=== PATIENT | female | born 1950 | race Caucasian/White ===

== ENCOUNTER → 2016-12-13 | Outpatient (CLI) | payer OTHER ==
[~2016-12-13] MED LIST: CLARITIN10 M3; COLACE PO; COMBIVENT U/D3 ML INH; ECOTRIN81 M1 PO; FLEXERIL10 MG PO; FOLIC ACID1 MG PO; GLUCOPHAGE XR500 MG PO; HYDROCODON-ACE1 EAC3 PO; METFORMIN HCL500 M2; OMEPRAZOLE20 M2 PO; PRILOSEC; SYMBICORT INH; TEMAZEPAM30 MG PO; UNKNOWN ANTIBIOTIC; VICODIN ES 7.51 EAC1; ZOFRAN ODT4 MG; ZOLOFT PO
--- NOTE | ~2016-12-13 | MY11 ---
[facility] A Service of [facility] RADIOLOGY TEXT RESULTS PATIENT: GRACIE DICKENS LOCATION: [facility] : 48 UNIT #: [id number] AGE: [address]: Lucina Coy APRN SEX: F ORDER DR: [id number] [address] [address] [id number] O MR#: [id number] Acc #: [id number] NAME: GRACIE DICKENS : 1950 SEX: F STUDY DATE/TIME: 12/13/2016 12:57 UNIT: [facility] ROOM: STUDY DESCRIPTION: MY Mammogram Screening Dig Juan Attending Physician: Lucina Coy A.P.R.N. Referring Physician: Lucina Coy A.P.R.N. Ordering Physician: Lucina Coy A.P.R.N. Primary Care Physician: Finesse Nava D.O. MEDICAL IMAGING REPORT This report is preliminary unless electronic signature is present. EXAM Bilateral digital screening mammogram with CAD COMPARISON None available. Patient reports prior mammograms performed at [facility], [place] but there is no record of such at this institution. This will therefore serve as the patient's effective baseline screening mammogram. INDICATION Breast cancer screening. 66-year-old asymptomatic female with history of benign excisional biopsy of the left breast and no personal or family history of breast cancer. FINDINGS There are scattered fibroglandular densities. There are benign vascular microcalcifications bilaterally. There are no suspicious findings in either breast. IMPRESSION No mammographic evidence of malignancy. Continued annual screening mammography and clinical breast exam are recommended. Patients over the age of 40 are entered into a reminder system with target due date for the next mammogram. A result letter will also be sent to the patient. BIRADS: 2 Benign finding Dictated by... Sunny Maciel M.D. [facility] A Service [facility] RADIOLOGY TEXT RESULTS PATIENT: GRACIE DICKENS LOCATION: [facility] : 48 UNIT #: [id number] AGE: [address]: Lucina Coy APRN SEX: F ORDER DR: THIS IS AN ELECTRONICALLY VERIFIED REPORT Sunny Maciel M.D. at 12/19/2016 5:25 PM Aleks TD: 12/19/2016 10:40 JOB #: [id number] MEDICAL IMAGING REPORT Page 1 of 1
== END | disposition home or self-care (01) ==
LOC: SMAM 12:00
DX: Z12.31 Encounter for screening mammogram for malignant neoplasm of breast (principal); Z91.89 Other specified personal risk factors, not elsewhere classified
CPT/HCPCS: G0202